=== PATIENT | female | born 1960 | race Caucasian/White ===

== ENCOUNTER 2023-01-27 14:28 | Outpatient (RCR) | payer MEDICARE, SELFPAY ==
--- NOTE | 2023-01-27 15:36 | OPREHPOC ---
Outpatient Therapy Plan of Care This is a Multidisciplinary Plan of Care that may contain components documented by all disciplines (PT, OT, and ST.) PT Problem 1 PT Problem #1 Knowledge Deficit PT Goal 1 Goal The patient will be independent in a home exercise program for cervical mobility and posture. Target Visit 12 PT Problem 2 PT Problem #2 Pain PT Goal 1 Goal The patient will report no greater than 3/10 cervical pain with daily activities. Target Visit 12 PT Problem 3 PT Problem #3 Impaired Range of Motion PT Goal 1 Goal The patient will demonstrate improved left lateral flexion AROM to 35 degrees and left rotation AROM to 60 degrees to improve motion for ADLs like driving. 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 Target Visit 12
--- NOTE | 2023-01-27 15:36 | PTOPEVAL1 ---
Assessment and note entered by Ksenia Madrigal, PT Evaluation Information Assessment Status Evaluation Diagnosis Cervical Radiculopathy L Onset 01/22/23 Subjective Information Mari Love reports an onset of pain around her left shoulder blade, front of her collar bone, left side of the neck, and into her forearm for unknown reasons. She also notes numbness in her left hand along all 5 fingers from the knuckles to the tips. She is right hand dominant. She is using 800 mg ibuprofen 3 times a day for pain which does not seem to help. She has a history of a left reverse total shoulder arthroplasty in 2018 and she thought the pain was coming from that. She went to the shoulder surgeon and x-rays showed the replacement was good. Her doctor thought the pain was coming from her neck and referred her to PT. 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 She is barely able to cook, bathe/groom, drive, and take care of her cats because of pain. Reported Pain Level Pain Score 5: Self Report Assessment PT Clinical Summary Mair Love presents with left sided cervical pain with radiation into the left UE. 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 She objectively demonstrates decreased and painful cervical AROM, decreased posture, decreased bilateral shoulder strength, tenderness at the left levator scapulae muscle, positive special tests consistent with cervical nerve root impingement, and decreased functional abilities. She will benefit from skilled PT to address these limitations. Plan of Care Interventions Electrical Stimulation,Hot Pack/Cold Pack,Manual Therapy,Mechanical Traction,Neuro Re-education, Patient/Caregiver Educati,Therapeutic Activities, Therapeutic Exercise PT Services Indicated Yes Treatment Frequency and 2 times a week for 12 visits Duration These treatments will address the objective and functional deficits as defined above. The patient will be advanced safely and appropriately in order for the patient to progress towards his/her prior level of function. Additional exercises will be introduced and as well as a comprehensive home exercise program upon discharge, if needed, ?to ensure carryover of functional gains achieved in the clinic. This treatment plan has been reviewed and agreement upon by the patient.
--- NOTE | 2023-08-18 13:55 | PCPTNOTE ---
08/18/23: Pt was last seen in PT on 02/13/23. She will be discharged. -Ksenia Madrigal, PT
== END 2023-02-13 23:59 | disposition home or self-care (01) ==
LOC: CHSPT 14:28
DX: M54.12 Radiculopathy, cervical region (principal)
CPT/HCPCS: 97012; 97014; 97110; 97140; 97161; G0283

== ENCOUNTER 2023-03-18 07:58 | Outpatient (CLI) | payer MEDICARE, SELFPAY ==
[2023-03-18 08:15] LABS: Basophils Absolute Auto 0.07 K/mm3 (0.00-0.10); Basophils Percent Auto 0.8 % (0.0-1.0); Eosinophils Absolute Auto 0.77 K/mm3 (0.02-0.50); Eosinophils Percent Auto 8.3 % (1.0-6.0); Immature Granulocyte Absolute 0.02 K/mm3 (0.00-0.00); Immature Granulocyte Percent A 0.2 % (0.0-0.0); Lymphocytes Absolute Auto 3.98 K/mm3 (1.10-4.50); Lymphocytes Percent Auto 42.7 % (18.0-42.0); Mean Corpuscular HGB Conc 34.2 g/dL (32.0-36.0); Mean Corpuscular Hemoglobin 33.2 pg (27.0-31.0); Mean Corpuscular Volume 96.9 fL (78.0-102.0); Mean Platelet Volume 9.4 fl (9.2-11.8); Monocytes Absolute Auto 0.72 K/mm3 (0.10-0.90); Monocytes Percent Auto 7.7 % (2.0-11.0); Neutrophils Absolute Auto 3.8 K/mm3 (1.7-7.2); Neutrophils Percent Auto 40.3 % (50.0-70.0); Platelet Count Result 338 K/mm3 (150-420); Red Blood Count 3.92 M/mm3 (4.20-5.40); Red Cell Distribution Width 13.4 % (11.6-14.4); White Blood Count 9.3 K/mm3 (4.8-10.8)
[2023-03-18 09:03] LABS: Alanine Aminotransferase 12 U/L (14-59); Albumin Level 3.3 g/dL (3.4-5.0); Alkaline Phosphatase 130 U/L (46-116); Anion Gap 13 mmol/L (8-16); Aspartate Amino Transferase 20 U/L (15-37); Bilirubin,Total 0.2 mg/dL (0.00-1.00); Blood Urea Nitrogen 11 mg/dL (7-18); Calcium 8.8 mg/dL (8.5-10.1); Carbon Dioxide 23 mmol/L (21-32); Chloride 106 mmol/L (98-108); Cholesterol 222 mg/dL (0-200); Estimated Glomerular Filt Rate > 60; Glucose 87 mg/dL (70-99); HDL Direct 39 mg/dL (40-60); LDL Cholesterol Calculated 139 mg/dL (<130); Osmolality Calculated 292 mOsm/kg (285-295); Potassium 3.8 mmol/L (3.5-5.1); Sodium 142 mmol/L (136-145); Thyroid Stimulating Hormone 1.53 uIU/mL (0.36-3.74); Total Protein 6.6 g/dL (6.4-8.2); Triglycerides 219 mg/dL (0-150)
[2023-03-26 19:10] LABS: Vitamin D 25 Hydroxy 39 ng/mL (30-100)
== END 2023-03-18 07:59 | disposition home or self-care (01) ==
LOC: CHSLAB 08:01
DX: E03.9 Hypothyroidism, unspecified (principal); E78.5 Hyperlipidemia, unspecified; M81.0 Age-related osteoporosis without current pathological fracture
CPT/HCPCS: 36415; 80053; 80061; 82306; 84443; 85025